=== PATIENT | female | born 1990 | race Caucasian/White ===

== ENCOUNTER 2016-11-16 14:36 | Emergency (ER) | payer MEDICAID ==
[2016-11-16 14:50] VITALS: BP 139/76
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
--- NOTE | 2016-11-17 14:25 | CR ---
Foot Comp Min 3V Lt INDICATION: toe injury FINDINGS: Negative left foot.
== END 2016-11-16 16:21 | disposition home or self-care (01) ==
LOC: JP.ED 14:36
DX: S90.122A Contusion of left lesser toe(s) without damage to nail, initial encounter (principal); Z88.2 Allergy status to sulfonamides; W23.1XXA Caught, crushed, jammed, or pinched between stationary objects, initial encounter
CPT/HCPCS: 73630-26-LT; 73630-LT; 99284